=== PATIENT | female | born 1995 | race Caucasian/White ===

== ENCOUNTER 2020-01-29 05:49 | Inpatient (IN) ==
[2020-01-29] MEDS ORDERED: Naloxone 0.4 MG/ML INJ IVP PRN (05:53)
[2020-01-29] MEDS ORDERED: miSOPROStoL 25 MCG TABLET VG PRN (05:53)
[2020-01-29] MEDS ORDERED: Famotidine 20 MG/2 ML VIAL IVP PRN (05:53)
[2020-01-29] MEDS ORDERED: Ondansetron 4 MG/2 ML VIAL IVP PRN (05:53)
[2020-01-29] MEDS ORDERED: *HR* FentaNYL (PF) 100 MCG/2 ML VIAL IVP PRN (05:53)
[2020-01-29] MEDS ORDERED: Lidocaine 1% 20 ML MDV INFILT PRN (05:53)
[2020-01-29] MEDS ORDERED: Metoclopramide 10 MG/2 ML VIAL IVP PRN (05:53)
[2020-01-29 06:18] LABS: Basophils # 0.1 K/mcL (0.0-0.2); Basophils % 0.4 %; Eosinophils # 0.1 K/mcL (0.0-0.6); Eosinophils % 0.4 %; Hematocrit 36.4 % (35.3-44.9); Hemoglobin 12.2 g/dL (11.5-15.4); Immature Granulocytes % 2.2 % (0-4); Lymphocytes # 3.1 K/mcL (0.6-4.6); Lymphocytes % 17.5 %; Mean Corpuscular HGB Conc 33.5 g/dL (31.6-35.5); Mean Corpuscular Hemoglobin 32.5 pg (28.0-33.3); Mean Corpuscular Volume 97.1 fL (83.0-100.0); Mean Platelet Volume 10.7 fL (9.4-12.4); Monocytes # 1.4 K/mcL (0.0-1.3); Monocytes % 7.6 %; Neutrophils # 12.9 K/mcL (1.6-8.9); Platelet Count 250 K/mcL (140-400); Red Blood Count 3.75 M/mcL (3.82-4.97); Segmented Neutrophils % 71.9 %
[2020-01-29] MEDS: Ringers Solution, Lactated 1,000 ML IVC SCH ×2 (06:22→13:27)
[2020-01-29] MEDS ORDERED: miSOPROStoL 25 MCG TABLET PO ONE (07:15)
[2020-01-29] MEDS ORDERED: EPHEDrine 50 MG/ML VIAL IVP PRN (07:41)
[2020-01-29] MEDS ORDERED: Epidural Premix (fent/bupiv) 110 ML EP SCH (07:45)
[2020-01-29 09:02] LABS: Amphetamine Screen,Urine Negative ng/mL (Cutoff=1000); Barbiturate Screen,Urine Negative ng/mL (Cutoff=200); Benzodiazepines Screen,Urine Negative ng/mL (Cutoff=200); Cannabinoid Screen,Urine Negative ng/mL (Cutoff = 50); Cocaine Screen,Urine Negative ng/mL (Cutoff= 300); Opiate Screen,Urine Negative ng/mL (Cutoff=300); Phencyclidine Screen,Urine Negative ng/mL (Cutoff=25)
[2020-01-29] MEDS ORDERED: Oxytocin 20 units/ LR 1000 mL 20 UNIT/1,000 ML BAG IVC SCH ×2 (11:15→20:24)
[2020-01-29] MEDS ORDERED: *HR* FentaNYL (PF) 100 MCG/2 ML VIAL ONE (13:02)
[2020-01-29] MEDS ORDERED: Ropivacaine/PF 0.2% 20 ML VIAL ONE (13:03)
[2020-01-29] MEDS ORDERED: Ibuprofen 600 MG TABLET PO PRN (20:24)
[2020-01-29] MEDS ORDERED: Benzocaine/Menthol 56 GM AEROSOL SPRAY TP PRN (20:24)
[2020-01-29] MEDS ORDERED: Acetaminophen 325 MG TABLET PO PRN (20:24)
[2020-01-29] MEDS ORDERED: Lanolin 7 G OINT...G. TP PRN (20:24)
[2020-01-30 07:19] LABS: Eosinophils % 0.4 %; Hemoglobin 11.3 g/dL (11.5-15.4); Immature Granulocytes % 1.7 % (0-4); Lymphocytes % 14.4 %; Mean Corpuscular HGB Conc 32.3 g/dL (31.6-35.5); Mean Corpuscular Hemoglobin 31.7 pg (28.0-33.3); Mean Corpuscular Volume 98.3 fL (83.0-100.0); Monocytes % 7.3 %; Platelet Count 239 K/mcL (140-400); Red Blood Count 3.56 M/mcL (3.82-4.97); Red Cell Distribution Width 13.9 % (11.5-14.5); Segmented Neutrophils % 75.9 %
[2020-01-30 07:20] LABS: Basophils # 0.1 K/mcL (0.0-0.2); Basophils % 0.3 %; Eosinophils # 0.1 K/mcL (0.0-0.6); Monocytes # 1.5 K/mcL (0.0-1.3); Neutrophils # 15.9 K/mcL (1.6-8.9)
[2020-01-30] MEDS: Prenatal Vit/FA 1 EACH TABLET PO SCH (08:09)
[2020-01-31] MEDS: Prenatal Vit/FA 1 EACH TABLET PO SCH (07:41)
[2020-01-31 07:56] VITALS: BP 102/64
== END 2020-01-31 12:54 | disposition home or self-care (01) | DRG 560 ==
LOC: 1NENULAB 05:49 → 1NENUOBS 19:50
PROVIDERS: ADMIT Obstetrics & Gynecology; ATTEND Obstetrics & Gynecology